=== PATIENT | male | born 1965 | race Hispanic/Latino ===

== ENCOUNTER 2020-09-01 08:35 | Emergency (ER) | payer OTHER ==
[2020-09-01] MEDS ORDERED: ASPIRIN 325 MG TAB PO ONE (08:42)
--- NOTE | 2020-09-01 09:29 | XRay Report ---
CHEST 2 VIEWS INDICATION / CLINICAL INFORMATION: Chest pain. COMPARISON: None available. FINDINGS: SUPPORT DEVICES: None. HEART / MEDIASTINUM: No significant abnormality. LUNGS / PLEURA: No significant pulmonary or pleural abnormality. No pneumothorax. ADDITIONAL FINDINGS: No significant additional findings. IMPRESSION: 1. No acute findings. Signer Name: Ceasar Pineda MD Signed: 09/01/2020 9:25 AM Workstation Name: [id number]
--- NOTE | 2020-09-01 10:26 | Emergency Department Report ---
ED Chest Pain HPI - General Chief Complaint: Chest Pain Stated Complaint: CHEST PAINS PUI?: No Time Seen by Provider: 09/01/20 10:26 Source: patient, RN notes reviewed Mode of arrival: Ambulatory Limitations: No Limitations - History of Present Illness Initial Comments: Primary CARE doctor: Robert hewitt Past medical history: Coronary artery disease, with stent, high cholesterol, hypertension, tobacco use. The patient is a pleasant 54-year-old gentleman. He is not known to myself previously. He presents to the ER with a complaint of nontraumatic left-sided chest pain. The chest pain does not radiate to the back, arms or neck. There is no vomiting or diaphoresis. The patient denies travel, surgery, immobilization, DVT and pulmonary embolism risk factors. The patient had chest pain like this last week, and it resolved on its own. He is still having chest pain at this time, but it feels improved than when kiya red to prior. He does not take erectile dysfunction medication. He denies hematemesis and bright red blood per rectum. He has no Covid symptomatology. He denies additional complaints at this time. He feels like he is back to his baseline. MD Complaint: chest pain -: Sudden Onset: during rest Pain Location: left chest Severity: moderate Quality: aching Consistency: constant Improves With: nothing Worsens With: nothing Treatments Prior to Arrival: aspirin Aspirin use within the Past 7 Days: (1) Yes (Patient also taking Brilinta) - Related Data On Oral Contraceptives: No Allergies Allergy/AdvReac Type Severity Reaction Status Date / Time No Known Allergies Allergy Unverified 09/01/20 08:39 Heart Score - HEART Score History: Moderately suspicious EKG: Non-specific Age: 45-65 Risk factors: > 3 risk factors or hx of atherosclerotic disease Troponin: 1-3x normal limit HEART Score: 6 - EKG Read Time Time EKG Completed: 08:51 EKG Read Time: 09:00 - Critical Actions Critical Actions: 4-6 pts:12-16.6% risk of adverse cardiac event. Should be admi tted ED Review of Systems ROS: Stated complaint: CHEST PAINS Other details as noted in HPI Comment: All other systems reviewed and negative Cardiovascular: chest pain ED Past Medical Hx - Past Medical History Previous Medical History?: Yes Hx Heart Attack/AMI: Yes Additional medical history: Has one heart stent - Surgical History Past Surgical History?: Yes Additional Surgical History: appy, rotator cuff, mult ortho surgeries ED Physical Exam - General Limitations: No Limitations General appearance: alert, in no apparent distress - Head Head exam: Present: atraumatic, normocephalic - Eye Eye exam: Present: normal appearance, EOMI. Absent: nystagmus - ENT ENT exam: Present: normal exam, normal orophraynx, mucous membranes moist, normal external ear exam - Neck Neck exam: Present: normal inspection, full ROM. Absent: tenderness, meningismus - Respiratory Respiratory exam: Present: normal lung sounds bilaterally. Absent: respiratory distress, wheezes, rales, rhonchi, stridor, accessory muscle use, decreased breath sounds - Cardiovascular Cardiovascular Exam: Present: normal rhythm, tachycardia, normal heart sounds. Absent: bradycardia, irregular rhythm, systolic murmur, diastolic murmur, rubs, gallop - GI/Abdominal GI/Abdominal exam: Present: soft. Absent: distended, tenderness, guarding, rebound, rigid, pulsatile mass - Rectal Rectal exam: Present: deferred - Extremities Exam Extremities exam: Present: normal inspection, full ROM, other (2+ pulses noted in the bilateral upper and lower extremities. There is no palpable cord. negative Homans sign. Muscular compartments are soft. The pelvis is stable.). Absent: pedal edema, calf tenderness - Back Exam Back exam: Present: normal inspection, full ROM. Absent: tenderness, CVA tenderness (R), CVA tenderness (L), paraspinal tenderness, vertebral tenderness - Neurological Exam Neurological exam: Present: alert, oriented X3, normal gait, other (No facial droop. Tongue midline. Extraocular movements intact bilaterally. Facial sensation intact to light touch in V1, V2, V3 distribution bilaterally. 5 and a 5 strength in 4 extremities. Sensation intact to light touch in 4 extremities.). Absent: motor sensory deficit - Psychiatric Psychiatric exam: Present: normal affect, normal mood - Skin Skin exam: Present: warm, dry, intact, normal color. Absent: rash ED Course Vital Signs 09/01/20 08:40 Temperature 98.3 F Pulse Rate 109 H Respiratory 20 Rate Blood Pressure 180/106 O2 Sat by Pulse 98 Oximetry - Reevaluation(s) Reevaluation #1: 09/01/20 11:17 Differential diagnosis, including but not limited to: Acute coronary syndrome, GERD, gastritis, hiatal hernia, pneumonia, hypertensive urgency, coronary artery disease Assessment and plan: 54-year-old gentleman, who is afebrile with reassuring vital signs, mild to moderate hypertension appreciated, tachycardia improving, without DVT or pulmonary embolism risk factors, who is low risk by Wells criteria for pulmonary embolism, positive troponin, normal renal function, nonspecific EKG, moderate risk for major adverse cardiac event as per heart score, equal pulses in the upper and lower extremities, no pulsatile abdominal mass, unremarkable mediastinum on x-ray of the chest, this is unlikely to be acute aortic disease, who is likely presenting with an NSTEMI/type I troponin leak. 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 Patient a [facility] patient, we have reached out to the [facility] network, waiting for them to call back. Patient will medically require admission to this facility, or transfer to [facility] for continuity of care, as per the typical [facility] policy. Patient will be updated on this plan of care. 09/01/20 11:[address] Abigail Stubbs, [facility] physician. We have discussed the patient's history, physical, laboratory studies and imaging studies. She will try to arrange transfer to the [facility] under the care of Dr. Vargas Have discussed this plan of care with the patient, who verbalized understanding, and is amenable to this plan of care. 09/01/20 12:07 Dr Vargas will be accepting physician at [facility], [place] 09/01/20 12:14 CHRISTIAN score - Christian Score Age > 65: (0) No Aspirin use within the Past 7 Days: (1) Yes 3 or more CAD Risk Factors: (1) Yes 2 or more Angina events in past 24 hrs: (0) No Known CAD with more than 50% Stenosis: (1) Yes Elevated Cardiac Markers: (1) Yes ST Deviation Greater than 0.5mm: (0) No CHRISTIAN Score: 4 ED Medical Decision Making - Lab Data Result diagrams: 09/01/20 09:50 09/01/20 09:50 Vital Signs 09/01/20 08:40 Temperature 98.3 F Pulse Rate 109 H Respiratory 20 Rate Blood Pressure 180/106 O2 Sat by Pulse 98 Oximetry Lab Results 09/01/20 09/01/20 Range/Units 09:50 09:50 WBC 12.0 H (4.5-11.0) K/mm3 RBC 4.64 (3.65-5.03) M/mm3 Hgb 15.4 H (11.8-15.2) gm/dl Hct 42.4 (35.5-45.6) % MCV 91 (84-94) fl MCH 33 H (28-32) pg MCHC 36 H (32-34) % RDW 12.3 L (13.2-15.2) % Plt Count 280 (140-440) K/mm3 Lymph % (Auto) 9.2 L (13.4-35.0) % [place] % (Auto) 7.3 (0.0-7.3) % Eos % (Auto) 1.6 (0.0-4.3) % Baso % (Auto) 0.5 (0.0-1.8) % Lymph # (Auto) 1.1 L (1.2-5.4) K/mm3 [place] # (Auto) 0.9 H (0.0-0.8) K/mm3 Eos # (Auto) 0.2 (0.0-0.4) K/mm3 Baso # (Auto) 0.1 (0.0-0.1) K/mm3 Seg Neutrophils % 81.4 H (40.0-70.0) % Seg Neutrophils # 9.7 H (1.8-7.7) K/mm3 Sodium 138 (137-145) mmol/L Potassium 4.1 (3.6-5.0) mmol/L Chloride 99.1 (98-107) mmol/L Carbon Dioxide 28 (22-30) mmol/L Anion Gap 15 mmol/L BUN 11 (9-20) mg/dL Creatinine 0.8 (0.8-1.3) mg/dL Estimated GFR > 60 ml/min BUN/Creatinine Ratio 14 % Glucose 190 H (75-100) mg/dL Calcium 10.1 (8.4-10.2) mg/dL Total Bilirubin 0.30 (0.1-1.2) mg/dL AST 25 (5-40) units/L ALT 20 (7-56) units/L Alkaline Phosphatase 102 (35-129) units/L Troponin T 0.251 H* (0.00-0.029) ng/mL Total Protein 7.6 (6.3-8.2) g/dL Albumin 4.8 (3.9-5) g/dL Albumin/Globulin Ratio 1.7 % - EKG Data -: EKG Interpreted by Me EKG shows normal: sinus rhythm - EKG Data 09/01/20 11:16 EKG interpreted at 09: 00 a.m. Sinus rhythm, tachycardia, 102 bpm. Normal P wave axis. Poor R wave progression. Left ventricular hypertrophy. QTC 460 ms. This is an abnormal EKG. This is not a STEMI. There is no prior for comparison. - Radiology Data Radiology results: pending, report reviewed, image reviewed CHEST 2 VIEWS INDICATION / CLINICAL INFORMATION: Chest pain. COMPARISON: None available. FINDINGS: SUPPORT DEVICES: None. HEART / MEDIASTINUM: No significant abnormality. LUNGS / PLEURA: No significant pulmonary or pleural abnormality. No pneumothorax. ADDITIONAL FINDINGS: No significant additional findings. IMPRESSION: 1. No acute findings. Signer Name: Ceasar Pineda MD Signed: 09/01/2020 8:25 AM Workstation Name: [id number] Critical Care Time: Yes Critical care time in (mins) excluding proc time.: 35 Critical care attestation.: If time is entered above; I have spent that time in minutes in the direct care of this critically ill patient, excluding procedure time. ED Disposition Clinical Impression: NSTEMI (non-ST elevated myocardial infarction) Disposition: [id number]/TX-02 [facility] IP Is pt being admited?: No Does the pt Need Aspirin: Yes Condition: Serious Referrals: [facility] [Other] - 3-5 Days
[2020-09-01 10:29] VITALS: BP 180/106
[2020-09-01 10:36] LABS: Basophils # (Auto) 0.1 K/mm3 (0.0-0.1); Basophils % (Auto) 0.5 % (0.0-1.8); Eosinophils # (Auto) 0.2 K/mm3 (0.0-0.4); Eosinophils % (Auto) 1.6 % (0.0-4.3); Lymphocytes # (Auto) 1.1 K/mm3 (1.2-5.4); Lymphocytes % (Auto) 9.2 % (13.4-35.0); Mean Corpuscular HGB Conc 36 % (32-34); Mean Corpuscular Volume 91 fl (84-94); Monocytes # (Auto) 0.9 K/mm3 (0.0-0.8); Monocytes % (Auto) 7.3 % (0.0-7.3); Platelet Count 280 K/mm3 (140-440); Red Blood Count 4.64 M/mm3 (3.65-5.03); Red Cell Distribution Width 12.3 % (13.2-15.2)
[2020-09-01 10:37] LABS: Hematocrit 42.4 % (35.5-45.6); Hemoglobin 15.4 gm/dl (11.8-15.2)
[2020-09-01 11:01] LABS: Alanine Aminotransferase 20 units/L (7-56); Albumin 4.8 g/dL (3.9-5); BUN/Creatinine Ratio 14; Blood Urea Nitrogen 11 mg/dL (9-20); Calcium 10.1 mg/dL (8.4-10.2); Hemolysis Index 7
[2020-09-01] MEDS ORDERED: HEPARIN 10,000 UNITS/10 ML VIAL IV PRN (11:12)
[2020-09-01] MEDS ORDERED: NITROGLYCERIN 0.4 MG TAB SUBL SL PRN (11:12)
[2020-09-01] MEDS ORDERED: HEPARIN 10,000 UNITS/10 ML VIAL IV ONE (11:12)
[2020-09-01] MEDS ORDERED: hydrALAZINE 20 MG/1 ML INJ IV ONE (11:16)
[2020-09-01] MEDS ORDERED: HEPARIN/ 0.45% NACL DRIP 25,000 UNIT/500 ML BAG IV SCH (12:00)
[2020-09-01 12:15] LABS: Chol/HDL Ratio 7.88 %; HDL Cholesterol 26 mg/dL (40-59); LDL Cholesterol,Direct TNR mg/dL (50-130)
[2020-09-01] MEDS ORDERED: ASPIRIN 325 MG TAB ONE (12:46)
[2020-09-01 14:15] LABS: INR 0.88 (0.87-1.13)
[2020-09-01 14:16] LABS: Partial Thromboplastin Time 27.9 Sec. (24.2-36.6)
--- NOTE | 2020-09-02 17:54 | Electrocardiograph Report ---
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
== END 2020-09-01 15:07 | disposition short-term general hospital (02) ==
LOC: ED 08:35
DX: I21.4 Non-ST elevation (NSTEMI) myocardial infarction (principal); Z98.890 Other specified postprocedural states; Z79.899 Other long term (current) drug therapy
CPT/HCPCS: 36415; 71046; 80053; 80061; 84484; 85025; 85520; 85610; 85730; 93005; 96365; 96366; 96376; 99291; J1644; 99285